=== PATIENT | female | born 1995 | race Two or more races ===

== ENCOUNTER 2017-12-26 19:57 | Emergency (ER) | payer OTHER ==
[~2017-12-26] VITALS: Ht 157.5 cm; Wt 65.3 kg
[2017-12-26] MEDS ORDERED: ACETAMINOPHEN 500 MG TABLET ONE (20:26)
[2017-12-26] MEDS ORDERED: ACETAMINOPHEN 500 MG TABLET PO ONE (20:30)
[2017-12-26 20:57] LABS: BASOPHILS # (AUTO) 0.01 x10^3/uL (0-0.1); BASOPHILS % (AUTO) 0 % (0-1); EOSINOPHILS # (AUTO) 0.05 x10^3/uL (0-0.4); EOSINOPHILS % (AUTO) 0 % (1-7); LYMPHOCYTES # (AUTO) 1.22 x10^3/uL (1-3.4); LYMPHOCYTES % (AUTO) 8 % (22-44); MD NO; MEAN CORPUSCULAR HGB CONC 33.5 g/dL (32.4-35.8); MEAN CORPUSCULAR VOLUME 92.4 fL (80-100); MEAN PLATELET VOLUME 8.8 fL (7.4-10.4); MONOCYTES # (AUTO) 0.68 x10^3/uL (0.2-0.8); MONOCYTES % (AUTO) 5 % (2-9); NEUTROPHILS % (AUTO) 87 % (42-75); PLATELET COUNT 315 x10^3/uL (130-400); RED BLOOD COUNT 4.55 x10^6/uL (3.82-5.3); RED CELL DISTRIBUTION WIDTH 13.7 % (9.6-15.2)
[2017-12-26] MEDS ORDERED: SODIUM CHLORIDE 0.9% 1,000ML IVBOLUS ONE (21:00)
[2017-12-26 21:09] LABS: ANION GAP 7 mmol/L (5-15); CALCIUM 9.5 mg/dL (8.5-10.1); CHLORIDE 106 mmol/L (98-107)
[2017-12-26 21:38] VITALS: BP 107/66
[2017-12-26 21:38] LABS: CREATININE 0.96 mg/dL (0.55-1.02)
== END 2017-12-26 22:29 | disposition home or self-care (01) ==
LOC: ED 22:15
DX: J02.8 Acute pharyngitis due to other specified organisms (principal); B34.9 Viral infection, unspecified; R11.2 Nausea with vomiting, unspecified
CPT/HCPCS: 36415; 80048; 85025; 96360; 99284; J7030

== ENCOUNTER 2017-12-31 00:36 | Emergency (ER) | payer OTHER ==
[~2017-12-31] VITALS: Ht 157.5 cm; Wt 66.0 kg
[2017-12-31] MEDS ORDERED: LORazepam 1MG TABLET ONE (02:54)
[2017-12-31] MEDS ORDERED: LORazepam 1MG TABLET PO ONE (03:00)
[2017-12-31 03:09] LABS: ALANINE AMINOTRANSFERASE 33 U/L (12-78); ALBUMIN 3.4 g/dL (3.4-5.0); ANION GAP 11 mmol/L (5-15); CALCIUM 8.9 mg/dL (8.5-10.1); CHLORIDE 103 mmol/L (98-107)
[2017-12-31 03:11] LABS: SALICYLATE LEVEL < 1.7 mg/dL (2.8-20.0)
[2017-12-31 03:12] LABS: ALKALINE PHOSPHATASE 76 U/L (45-117); BILIRUBIN,TOTAL 0.3 mg/dL (0.2-1.0)
[2017-12-31 03:13] LABS: ACETAMINOPHEN < 2 mcg/mL (10-30)
[2017-12-31 03:15] LABS: MEAN CORPUSCULAR HEMOGLOBIN 30.6 pg (27.0-34.8); MEAN CORPUSCULAR HGB CONC 33.5 g/dL (32.4-35.8); MEAN CORPUSCULAR VOLUME 91.3 fL (80-100); MEAN PLATELET VOLUME 8.1 fL (7.4-10.4); PLATELET COUNT 477 x10^3/uL (130-400); RED BLOOD COUNT 4.14 x10^6/uL (3.82-5.3); RED CELL DISTRIBUTION WIDTH 13.6 % (9.6-15.2)
[2017-12-31 03:35] LABS: AMPHETAMINE SCREEN, URINE Negative (Negative); BARBITURATE SCREEN, URINE Negative (Negative); BENZODIAZEPINE SCREEN, URINE Negative (Negative); CANNABINOID SCREEN, URINE Negative (Negative); COCAINE SCREEN, URINE Negative (Negative); OPIATE SCREEN, URINE Negative (Negative)
[2017-12-31 03:35] LABS: MD YES
[2017-12-31 03:37] LABS: METHADONE SCREEN, URINE Negative (Negative)
[2017-12-31 03:38] LABS: <PLATELET ESTIMATE> INCREASED; <PLT MORPHOLOGY> NORMAL PLT MORPH; <RBC MORPHOLOGY> NORMAL; BAND#(MANUAL) 0.17 x10^3/uL; BANDS%(MANUAL) 1 % (0-7); BASOS#(MANUAL) 0.17 x10^3/uL (0-0.1); BASOS% (MANUAL) 1 % (0-1); LYMPH#(MANUAL) 2.16 x10^3/uL (1-3.4); LYMPHS% (MANUAL) 13 % (22-44); MONOS% (MANUAL) 3 % (2-9); SEG#(MANUAL) 13.61 x10^3/uL (1.8-6.8); SEGS% (MANUAL) 82 % (42-75); TOXIC GRAN 1+
[2017-12-31 03:58] LABS: MICROSCOPIC NOT IND
[2017-12-31 04:01] LABS: CULTURE INDICATED? NO
[2017-12-31 04:55] VITALS: BP 120/78
[2018-01-01] MEDS ORDERED: AZIT500T PO (06:29)
== END 2017-12-31 04:57 | disposition home or self-care (01) ==
LOC: ED 03:16
DX: F41.9 Anxiety disorder, unspecified (principal); F14.10 Cocaine abuse, uncomplicated; R05 Cough; Z72.9 Problem related to lifestyle, unspecified; Z88.8 Allergy status to other drugs, medicaments and biological substances
CPT/HCPCS: 36415; 71045; 80053; 80307; 80329; 81003; 84703; 85025; 99285; G0480

== ENCOUNTER 2018-01-01 03:28 | Inpatient (IN) | payer OTHER ==
[~2018-01-01] VITALS: Ht 160 cm; Wt 63.6 kg
[2018-01-01 04:21] LABS: BASOPHILS # (AUTO) 0.04 x10^3/uL (0-0.1); BASOPHILS % (AUTO) 0 % (0-1); EOSINOPHILS # (AUTO) 0.04 x10^3/uL (0-0.4); EOSINOPHILS % (AUTO) 0 % (1-7); LYMPHOCYTES # (AUTO) 2.42 x10^3/uL (1-3.4); LYMPHOCYTES % (AUTO) 15 % (22-44); MD NO; MEAN CORPUSCULAR HEMOGLOBIN 30.1 pg (27.0-34.8); MEAN CORPUSCULAR HGB CONC 33.7 g/dL (32.4-35.8); MEAN CORPUSCULAR VOLUME 89.3 fL (80-100); MONOCYTES # (AUTO) 1.44 x10^3/uL (0.2-0.8); MONOCYTES % (AUTO) 9 % (2-9); NEUTROPHILS # (AUTO) 11.95 x10^3/uL (1.8-6.8); NEUTROPHILS % (AUTO) 75 % (42-75); PLATELET COUNT 526 x10^3/uL (130-400); RED BLOOD COUNT 3.92 x10^6/uL (3.82-5.3); RED CELL DISTRIBUTION WIDTH 13.5 % (9.6-15.2)
[2018-01-01 04:31] LABS: ALANINE AMINOTRANSFERASE 39 U/L (12-78); ANION GAP 10 mmol/L (5-15); CALCIUM 8.8 mg/dL (8.5-10.1); CHLORIDE 106 mmol/L (98-107); CREATININE 0.69 mg/dL (0.55-1.02)
[2018-01-01 04:32] LABS: SALICYLATE LEVEL < 1.7 mg/dL (2.8-20.0)
[2018-01-01 04:36] LABS: ACETAMINOPHEN < 2 mcg/mL (10-30); ALKALINE PHOSPHATASE 70 U/L (45-117); BILIRUBIN,TOTAL 0.3 mg/dL (0.2-1.0); TOTAL PROTEIN 7.6 g/dL (6.4-8.2)
[2018-01-01 04:59] LABS: AMPHETAMINE SCREEN, URINE Negative (Negative); BARBITURATE SCREEN, URINE Negative (Negative); BENZODIAZEPINE SCREEN, URINE Negative (Negative); CANNABINOID SCREEN, URINE Negative (Negative); COCAINE SCREEN, URINE Negative (Negative); METHADONE SCREEN, URINE Negative (Negative); OPIATE SCREEN, URINE Negative (Negative)
[2018-01-01] MEDS ORDERED: ZIPRASIDONE 20 MG INJ IM ONE ×5 (05:14→23:30)
[2018-01-01] MEDS ORDERED: AZIT500T PO (06:29)
[2018-01-01] MEDS ORDERED: SODIUM CHLORIDE 0.9% 1,000 ML IV ONE (07:18)
[2018-01-01] MEDS ORDERED: AZITHROMYCIN 500 MG in SODIUM CHLORIDE 0.9% 250 ML IVPB ONE (07:30)
[2018-01-01] MEDS ORDERED: CEFTRIAXONE PMX 1GM/50ML 50 ML IVPB ONE (07:30)
[2018-01-01] MEDS ORDERED: SODIUM CHLORIDE 0.9% 1,000ML IVBOLUS ONE ×2 (07:30→08:00)
[2018-01-01] MEDS ORDERED: VANCOMYCIN PER PHARMACY IV ONE (07:30)
[2018-01-01] MEDS ORDERED: CEFTRIAXONE PMX 2GM/50ML 50 ML IV SCH (07:30)
[2018-01-01] MEDS ORDERED: SODIUM CHLORIDE FLUSH 10ML SYR IVF ONE (07:30)
[2018-01-01] MEDS ORDERED: VANCOMYCIN 1,200 MG in SODIUM CHLORIDE 0.9% 250 ML IV ONE (08:00)
[2018-01-01] MEDS ORDERED: MIDAZOLAM 1 MG/ML, 2ML ONE (08:36)
[2018-01-01] MEDS ORDERED: CEFTRIAXONE PMX 2GM/50ML 50 ML ONE (08:36)
[2018-01-01] MEDS ORDERED: MIDAZOLAM 1 MG/ML, 2ML IVPush ONE (09:00)
[2018-01-01] MEDS ORDERED: PROPOFOL 10 MG/ML, 20ML ONE (09:04)
[2018-01-01] MEDS ORDERED: PROPOFOL 10 MG/ML, 20ML IVPush ONE (09:30)
[2018-01-01 10:25] LABS: GLUCOSE, CSF 61 mg/dL (40-80); TOTAL PROTEIN,CSF 18 mg/dL (15-45)
[2018-01-01] MEDS ORDERED: LABETALOL 5MG/ML, 20ML IVPush PRN (11:00)
[2018-01-01] MEDS ORDERED: ONDANSETRON 2MG/ML, 2ML IVPush PRN (11:00)
[2018-01-01 11:13] LABS: FREE T4 (FREE THYROXINE) 1.59 ng/dL (0.76-1.46)
[2018-01-01] MEDS ORDERED: ONDANSETRON ODT 4 MG PO PRN (11:30)
[2018-01-01] MEDS: AMPICILLIN/SULBACTAM 3 GM in SODIUM CHLORIDE 0.9% 100 ML IV SCH ×2 (13:50→19:57)
[2018-01-01] MEDS: D5%-0.45NACL+KCL 20MEQ 1,000 ML IV SCH ×2 (14:43→20:00)
[2018-01-01] MEDS: ENOXAPARIN 40 MG/0.4 ML SQ SCH (14:43)
[2018-01-01] MEDS ORDERED: OMNIPAQUE 350 MG/ML, 100ML BOTTLE ONE (18:00)
[2018-01-01 20:24] VITALS: BP 127/86
[2018-01-01 20:42] LABS: MICROSCOPIC NOT IND
[2018-01-01 20:48] LABS: CULTURE INDICATED? NO
[2018-01-01 20:55] LABS: AMPHETAMINE SCREEN, URINE Negative (Negative); BARBITURATE SCREEN, URINE Negative (Negative); BENZODIAZEPINE SCREEN, URINE Positive (Negative); CANNABINOID SCREEN, URINE Negative (Negative); COCAINE SCREEN, URINE Negative (Negative); METHADONE SCREEN, URINE Negative (Negative); OPIATE SCREEN, URINE Negative (Negative)
[2018-01-02] MEDS: AMPICILLIN/SULBACTAM 3 GM in SODIUM CHLORIDE 0.9% 100 ML IV SCH ×4 (01:19→19:57)
[2018-01-02 03:49] VITALS: BP 125/77
[2018-01-02] MEDS: D5%-0.45NACL+KCL 20MEQ 1,000 ML IV SCH (05:23)
[2018-01-02] MEDS ORDERED: LORazepam 2 MG/ML, 1ML IVPush PRN (05:30)
[2018-01-02 05:44] LABS: BASOPHILS # (AUTO) 0.03 x10^3/uL (0-0.1); BASOPHILS % (AUTO) 0 % (0-1); EOSINOPHILS # (AUTO) 0.08 x10^3/uL (0-0.4); EOSINOPHILS % (AUTO) 1 % (1-7); LYMPHOCYTES % (AUTO) 26 % (22-44); MD NO; MEAN CORPUSCULAR HEMOGLOBIN 30.2 pg (27.0-34.8); MEAN CORPUSCULAR HGB CONC 33.1 g/dL (32.4-35.8); MEAN CORPUSCULAR VOLUME 91.1 fL (80-100); MEAN PLATELET VOLUME 7.9 fL (7.4-10.4); MONOCYTES # (AUTO) 0.81 x10^3/uL (0.2-0.8); MONOCYTES % (AUTO) 7 % (2-9); NEUTROPHILS # (AUTO) 8.11 x10^3/uL (1.8-6.8); NEUTROPHILS % (AUTO) 67 % (42-75); PLATELET COUNT 573 x10^3/uL (130-400); RED BLOOD COUNT 3.83 x10^6/uL (3.82-5.3); RED CELL DISTRIBUTION WIDTH 13.5 % (9.6-15.2)
[2018-01-02 05:55] LABS: ANION GAP 10 mmol/L (5-15); CALCIUM 8.6 mg/dL (8.5-10.1); CHLORIDE 110 mmol/L (98-107)
[2018-01-02 06:00] LABS: ALANINE AMINOTRANSFERASE 36 U/L (12-78); ALKALINE PHOSPHATASE 61 U/L (45-117); BILIRUBIN,TOTAL 0.3 mg/dL (0.2-1.0); CREATININE 0.67 mg/dL (0.55-1.02); TOTAL PROTEIN 7.4 g/dL (6.4-8.2)
[2018-01-02] MEDS ORDERED: POTASSIUM CHLORIDE 20 MEQ TAB.ER.PRT PO ONE ×3 (07:00→11:00)
[2018-01-02 08:21] VITALS: BP 110/76
[2018-01-02] MEDS: LACTATED RINGERS 1,000 ML IV SCH ×2 (08:46→18:09)
[2018-01-02] MEDS: HALOPERIDOL 5 MG/ML IM PRN (08:46)
[2018-01-02] MEDS: OLANZAPINE 5 MG TABLET PO SCH ×2 (08:46→21:18)
[2018-01-02] MEDS: DOXYCYCLINE 100MG TABLET PO SCH ×2 (08:46→21:18)
[2018-01-02] MEDS ORDERED: OLANZAPINE 5 MG TABLET PO SCH (09:00)
[2018-01-02] MEDS: HALOPERIDOL 2 MG/ML ORAL SOL PO SCH ×3 (09:00→21:19)
[2018-01-02] MEDS: SENNA/DOCUSATE TABLET PO SCH (09:00)
[2018-01-02] MEDS: ENOXAPARIN 40 MG/0.4 ML SQ SCH (11:00)
[2018-01-02 13:01] VITALS: BP 95/60
[2018-01-02 21:20] VITALS: BP 105/83
[2018-01-03] MEDS: AMPICILLIN/SULBACTAM 3 GM in SODIUM CHLORIDE 0.9% 100 ML IV SCH ×4 (01:48→20:32)
[2018-01-03] MEDS: LACTATED RINGERS 1,000 ML IV SCH (01:50)
[2018-01-03 04:02] VITALS: BP 120/82
[2018-01-03 05:29] LABS: BASOPHILS % (AUTO) 1 % (0-1); EOSINOPHILS % (AUTO) 1 % (1-7); LYMPHOCYTES # (AUTO) 3.57 x10^3/uL (1-3.4); LYMPHOCYTES % (AUTO) 45 % (22-44); MD NO; MEAN CORPUSCULAR HEMOGLOBIN 30.5 pg (27.0-34.8); MEAN CORPUSCULAR HGB CONC 33.9 g/dL (32.4-35.8); MEAN CORPUSCULAR VOLUME 89.8 fL (80-100); MEAN PLATELET VOLUME 7.5 fL (7.4-10.4); MONOCYTES # (AUTO) 0.55 x10^3/uL (0.2-0.8); MONOCYTES % (AUTO) 7 % (2-9); NEUTROPHILS # (AUTO) 3.57 x10^3/uL (1.8-6.8); NEUTROPHILS % (AUTO) 45 % (42-75); PLATELET COUNT 559 x10^3/uL (130-400); RED BLOOD COUNT 3.74 x10^6/uL (3.82-5.3)
[2018-01-03 05:34] LABS: ALBUMIN 2.7 g/dL (3.4-5.0); ANION GAP 9 mmol/L (5-15); CHLORIDE 109 mmol/L (98-107)
[2018-01-03 05:37] LABS: ALANINE AMINOTRANSFERASE 29 U/L (12-78); ALKALINE PHOSPHATASE 52 U/L (45-117); BILIRUBIN,TOTAL 0.5 mg/dL (0.2-1.0); CREATININE 0.71 mg/dL (0.55-1.02); TOTAL PROTEIN 6.7 g/dL (6.4-8.2)
[2018-01-03 07:06] VITALS: BP 137/90
[2018-01-03] MEDS: HALOPERIDOL 5 MG/ML IM PRN ×2 (07:06→14:53)
[2018-01-03] MEDS: HALOPERIDOL 2 MG/ML ORAL SOL PO SCH ×3 (07:56→13:42)
[2018-01-03] MEDS: DOXYCYCLINE 100MG TABLET PO SCH ×2 (07:56→20:32)
[2018-01-03] MEDS: OLANZAPINE 5 MG TABLET PO SCH ×2 (07:57→20:32)
[2018-01-03] MEDS ORDERED: GUAIFENESIN 200 MG TABLET PO PRN (08:30)
[2018-01-03] MEDS: SENNA/DOCUSATE TABLET PO SCH (09:00)
[2018-01-03] MEDS: ENOXAPARIN 40 MG/0.4 ML SQ SCH (13:42)
[2018-01-03 15:00] VITALS: BP 138/74
[2018-01-03] MEDS ORDERED: LORazepam 2 MG/ML, 1ML IVPush PRN (16:00)
[2018-01-03] MEDS ORDERED: BENZTROPINE 1 MG/ML, 2 ML IVPush ONE (16:00)
[2018-01-03] MEDS ORDERED: BENZTROPINE 1 MG/ML, 2 ML IM ONE (16:30)
[2018-01-03] MEDS ORDERED: DIPHENHYDRAMINE 50 MG CAPSULE PO PRN (17:30)
[2018-01-03] MEDS ORDERED: OLANZAPINE 10 MG INJ IM PRN (17:30)
[2018-01-03] MEDS: BENZTROPINE 1 MG TABLET PO SCH (20:31)
[2018-01-03 20:59] VITALS: BP 120/84
[2018-01-04 00:46] VITALS: BP 113/81
[2018-01-04] MEDS: AMPICILLIN/SULBACTAM 3 GM in SODIUM CHLORIDE 0.9% 100 ML IV SCH ×4 (02:50→21:04)
[2018-01-04 05:41] LABS: ANION GAP 8 mmol/L (5-15); CALCIUM 9.2 mg/dL (8.5-10.1); CHLORIDE 104 mmol/L (98-107); CREATININE 0.79 mg/dL (0.55-1.02)
[2018-01-04 05:42] LABS: ALANINE AMINOTRANSFERASE 38 U/L (12-78); ALBUMIN 3.4 g/dL (3.4-5.0)
[2018-01-04 05:43] LABS: ALKALINE PHOSPHATASE 63 U/L (45-117); BASOPHILS # (AUTO) 0.02 x10^3/uL (0-0.1); BASOPHILS % (AUTO) 0 % (0-1); BILIRUBIN,TOTAL 0.3 mg/dL (0.2-1.0); EOSINOPHILS # (AUTO) 0.09 x10^3/uL (0-0.4); EOSINOPHILS % (AUTO) 1 % (1-7); LYMPHOCYTES # (AUTO) 3.64 x10^3/uL (1-3.4); LYMPHOCYTES % (AUTO) 34 % (22-44); MD NO; MEAN CORPUSCULAR HEMOGLOBIN 30.4 pg (27.0-34.8); MEAN CORPUSCULAR HGB CONC 33.1 g/dL (32.4-35.8); MEAN CORPUSCULAR VOLUME 91.8 fL (80-100); MEAN PLATELET VOLUME 7.7 fL (7.4-10.4); MONOCYTES # (AUTO) 0.73 x10^3/uL (0.2-0.8); MONOCYTES % (AUTO) 7 % (2-9); NEUTROPHILS # (AUTO) 6.24 x10^3/uL (1.8-6.8); NEUTROPHILS % (AUTO) 58 % (42-75); PLATELET COUNT 750 x10^3/uL (130-400); RED BLOOD COUNT 4.36 x10^6/uL (3.82-5.3); RED CELL DISTRIBUTION WIDTH 13.6 % (9.6-15.2)
[2018-01-04 07:04] VITALS: BP 123/85
[2018-01-04] MEDS ORDERED: DIPHENHYDRAMINE 50 MG/ML, 1ML ONE (07:39)
[2018-01-04] MEDS ORDERED: DIPHENHYDRAMINE 50 MG/ML, 1ML IVPush ONE (08:00)
[2018-01-04] MEDS: BENZTROPINE 1 MG TABLET PO SCH ×2 (08:38→21:05)
[2018-01-04] MEDS: DOXYCYCLINE 100MG TABLET PO SCH ×2 (08:38→21:05)
[2018-01-04] MEDS: OLANZAPINE 5 MG TABLET PO SCH ×2 (08:38→21:05)
[2018-01-04] MEDS: SENNA/DOCUSATE TABLET PO SCH (08:39)
[2018-01-04] MEDS ORDERED: LORazepam 2 MG/ML, 1ML ONE (08:43)
[2018-01-04] MEDS ORDERED: LORazepam 2 MG/ML, 1ML IVPush ONE (09:00)
[2018-01-04 12:47] VITALS: BP 118/78
[2018-01-04] MEDS: ENOXAPARIN 40 MG/0.4 ML SQ SCH (13:32)
[2018-01-04] MEDS ORDERED: OLANZAPINE 10 MG INJ IM PRN ×3 (14:00→17:30)
[2018-01-04] MEDS ORDERED: LORazepam 1MG TABLET PO ONE (14:00)
[2018-01-04] MEDS: ONDANSETRON ODT 4 MG PO PRN (14:56)
[2018-01-04 18:58] VITALS: BP 118/79
[2018-01-04] MEDS: LORazepam 1MG TABLET PO PRN (19:29)
[2018-01-05 01:30] VITALS: BP 117/78
[2018-01-05] MEDS: OLANZAPINE 10 MG INJ IM PRN ×2 (01:47→16:50)
[2018-01-05] MEDS: AMPICILLIN/SULBACTAM 3 GM in SODIUM CHLORIDE 0.9% 100 ML IV SCH ×4 (03:02→21:07)
[2018-01-05 05:34] LABS: BASOPHILS # (AUTO) 0.04 x10^3/uL (0-0.1); BASOPHILS % (AUTO) 1 % (0-1); EOSINOPHILS # (AUTO) 0.12 x10^3/uL (0-0.4); EOSINOPHILS % (AUTO) 2 % (1-7); LYMPHOCYTES % (AUTO) 33 % (22-44); MD NO; MEAN CORPUSCULAR HEMOGLOBIN 30.5 pg (27.0-34.8); MEAN CORPUSCULAR HGB CONC 33.4 g/dL (32.4-35.8); MEAN CORPUSCULAR VOLUME 91.3 fL (80-100); MEAN PLATELET VOLUME 7.3 fL (7.4-10.4); MONOCYTES # (AUTO) 0.66 x10^3/uL (0.2-0.8); MONOCYTES % (AUTO) 9 % (2-9); NEUTROPHILS # (AUTO) 4.36 x10^3/uL (1.8-6.8); NEUTROPHILS % (AUTO) 56 % (42-75); PLATELET COUNT 695 x10^3/uL (130-400); RED BLOOD COUNT 4.42 x10^6/uL (3.82-5.3); RED CELL DISTRIBUTION WIDTH 13.7 % (9.6-15.2)
[2018-01-05 05:44] LABS: ALBUMIN 3.2 g/dL (3.4-5.0); ANION GAP 8 mmol/L (5-15); CALCIUM 9.1 mg/dL (8.5-10.1); CHLORIDE 106 mmol/L (98-107); CREATININE 0.94 mg/dL (0.55-1.02)
[2018-01-05 06:40] VITALS: BP 115/79
[2018-01-05] MEDS ORDERED: FENTANYL PF 100 MCG/2ML ONE (07:25)
[2018-01-05] MEDS ORDERED: FLUMAZENIL 0.1 MG/1 ML, 5ML ONE (07:25)
[2018-01-05] MEDS ORDERED: MIDAZOLAM 1 MG/ML, 5ML ONE (07:25)
[2018-01-05] MEDS ORDERED: NALOXONE 1 MG/ML, 2ML ONE (07:25)
[2018-01-05] MEDS ORDERED: GADOBUTROL 7.5 MMOL/7.5 ML PFS ONE (08:05)
[2018-01-05] MEDS: BENZTROPINE 1 MG TABLET PO SCH ×2 (08:49→21:07)
[2018-01-05] MEDS: DOXYCYCLINE 100MG TABLET PO SCH ×2 (08:49→21:07)
[2018-01-05] MEDS: OLANZAPINE 5 MG TABLET PO SCH ×2 (08:50→17:43)
[2018-01-05] MEDS: SENNA/DOCUSATE TABLET PO SCH (08:50)
[2018-01-05] MEDS: LORazepam 1MG TABLET PO PRN ×3 (10:31→22:27)
[2018-01-05 13:50] VITALS: BP 114/80
[2018-01-05] MEDS: ENOXAPARIN 40 MG/0.4 ML SQ SCH (14:57)
[2018-01-05 21:16] VITALS: BP 111/76
[2018-01-06 01:51] VITALS: BP 113/82
[2018-01-06] MEDS: OLANZAPINE 10 MG INJ IM PRN ×2 (01:53→18:23)
[2018-01-06] MEDS: AMPICILLIN/SULBACTAM 3 GM in SODIUM CHLORIDE 0.9% 100 ML IV SCH (03:25)
[2018-01-06] MEDS: LORazepam 1MG TABLET PO PRN ×3 (05:55→23:54)
[2018-01-06 08:53] VITALS: BP 118/82
[2018-01-06] MEDS: BENZTROPINE 1 MG TABLET PO SCH ×2 (08:53→20:07)
[2018-01-06] MEDS: SENNA/DOCUSATE TABLET PO SCH (08:53)
[2018-01-06] MEDS: OLANZAPINE 5 MG TABLET PO SCH ×2 (08:53→20:07)
[2018-01-06] MEDS: CEFTRIAXONE PMX 1GM/50ML 50 ML IV SCH (08:53)
[2018-01-06] MEDS: DOXYCYCLINE 100MG TABLET PO SCH ×2 (08:53→20:07)
[2018-01-06 10:21] VITALS: BP 118/82
[2018-01-06] MEDS: ENOXAPARIN 40 MG/0.4 ML SQ SCH (11:23)
[2018-01-06 13:03] VITALS: BP 122/78
[2018-01-06 18:29] VITALS: BP 114/79
[2018-01-06] MEDS: ONDANSETRON ODT 4 MG PO PRN (21:37)
[2018-01-07 01:19] VITALS: BP 124/80
[2018-01-07 07:27] VITALS: BP 116/81
[2018-01-07] MEDS: OLANZAPINE 5 MG TABLET PO SCH ×2 (09:12→20:04)
[2018-01-07] MEDS: DOXYCYCLINE 100MG TABLET PO SCH ×2 (09:12→20:03)
[2018-01-07] MEDS: SENNA/DOCUSATE TABLET PO SCH (09:12)
[2018-01-07] MEDS: CEFTRIAXONE PMX 1GM/50ML 50 ML IV SCH (09:12)
[2018-01-07] MEDS: BENZTROPINE 1 MG TABLET PO SCH ×2 (09:12→20:03)
[2018-01-07] MEDS: ENOXAPARIN 40 MG/0.4 ML SQ SCH (11:28)
[2018-01-07] MEDS: LORazepam 1MG TABLET PO PRN (11:28)
[2018-01-07] MEDS: OLANZAPINE 10 MG INJ IM PRN (12:51)
[2018-01-07] MEDS ORDERED: LORazepam 1MG TABLET PO PRN (14:00)
[2018-01-07 14:20] VITALS: BP 116/77
[2018-01-07 18:41] VITALS: BP 101/70
[2018-01-07] MEDS ORDERED: FLUCONAZOLE 100 MG TABLET ONE (19:56)
[2018-01-07] MEDS: FLUCONAZOLE 200 MG TABLET PO SCH (20:05)
[2018-01-08 01:28] VITALS: BP 104/69
[2018-01-08 07:12] VITALS: BP 125/85
[2018-01-08] MEDS: DOXYCYCLINE 100MG TABLET PO SCH (07:57)
[2018-01-08] MEDS: OLANZAPINE 5 MG TABLET PO SCH ×2 (07:57→20:17)
[2018-01-08] MEDS: BENZTROPINE 1 MG TABLET PO SCH ×2 (07:57→20:17)
[2018-01-08] MEDS: SENNA/DOCUSATE TABLET PO SCH (07:57)
[2018-01-08] MEDS: FLUCONAZOLE 200 MG TABLET PO SCH (07:57)
[2018-01-08] MEDS: CEFTRIAXONE PMX 1GM/50ML 50 ML IV SCH (10:57)
[2018-01-08] MEDS: ENOXAPARIN 40 MG/0.4 ML SQ SCH (10:58)
[2018-01-08 13:46] VITALS: BP 107/76
[2018-01-08] MEDS ORDERED: SODIUM CHLORIDE 0.9% 1,000ML IVBOLUS ONE (18:00)
[2018-01-08 19:45] VITALS: BP 108/77
[2018-01-08] MEDS: DIVALPROEX 500 MG TAB.ER.24H PO SCH (20:17)
[2018-01-09 02:49] VITALS: BP 93/64
[2018-01-09 05:47] LABS: ALBUMIN 3.2 g/dL (3.4-5.0); ANION GAP 6 mmol/L (5-15); CHLORIDE 109 mmol/L (98-107)
[2018-01-09 05:51] LABS: ALANINE AMINOTRANSFERASE 68 U/L (12-78); ALKALINE PHOSPHATASE 53 U/L (45-117); BASOPHILS # (AUTO) 0.04 x10^3/uL (0-0.1); BASOPHILS % (AUTO) 1 % (0-1); BILIRUBIN,TOTAL 0.5 mg/dL (0.2-1.0); CREATININE 0.86 mg/dL (0.55-1.02); EOSINOPHILS # (AUTO) 0.14 x10^3/uL (0-0.4); EOSINOPHILS % (AUTO) 2 % (1-7); LYMPHOCYTES # (AUTO) 3.17 x10^3/uL (1-3.4); LYMPHOCYTES % (AUTO) 46 % (22-44); MD NO; MEAN CORPUSCULAR HEMOGLOBIN 30.3 pg (27.0-34.8); MEAN CORPUSCULAR HGB CONC 33.5 g/dL (32.4-35.8); MEAN CORPUSCULAR VOLUME 90.3 fL (80-100); MEAN PLATELET VOLUME 7.9 fL (7.4-10.4); MONOCYTES # (AUTO) 0.72 x10^3/uL (0.2-0.8); MONOCYTES % (AUTO) 11 % (2-9); NEUTROPHILS # (AUTO) 2.76 x10^3/uL (1.8-6.8); NEUTROPHILS % (AUTO) 41 % (42-75); PLATELET COUNT 479 x10^3/uL (130-400); RED BLOOD COUNT 4.24 x10^6/uL (3.82-5.3); RED CELL DISTRIBUTION WIDTH 13.9 % (9.6-15.2); TOTAL PROTEIN 6.6 g/dL (6.4-8.2)
[2018-01-09] MEDS: BENZTROPINE 1 MG TABLET PO SCH ×2 (08:47→19:50)
[2018-01-09] MEDS: SENNA/DOCUSATE TABLET PO SCH (08:47)
[2018-01-09] MEDS: ENOXAPARIN 40 MG/0.4 ML SQ SCH (08:47)
[2018-01-09] MEDS: OLANZAPINE 5 MG TABLET PO SCH ×2 (08:47→19:51)
[2018-01-09] MEDS: FLUCONAZOLE 200 MG TABLET PO SCH (08:47)
[2018-01-09 08:52] VITALS: BP 99/62
[2018-01-09 15:55] VITALS: BP 117/78
[2018-01-09] MEDS: DIVALPROEX 500 MG TAB.ER.24H PO SCH (19:50)
[2018-01-09 20:01] VITALS: BP 107/74
[2018-01-10 04:28] VITALS: BP 117/76
[2018-01-10 06:40] VITALS: BP 104/68
[2018-01-10] MEDS: ENOXAPARIN 40 MG/0.4 ML SQ SCH (09:00)
[2018-01-10] MEDS: OLANZAPINE 5 MG TABLET PO SCH ×2 (09:02→20:33)
[2018-01-10] MEDS: BENZTROPINE 1 MG TABLET PO SCH ×2 (09:02→20:33)
[2018-01-10] MEDS: SENNA/DOCUSATE TABLET PO SCH (09:02)
[2018-01-10 12:12] VITALS: BP 103/72
[2018-01-10] MEDS: DIVALPROEX 500 MG TAB.ER.24H PO SCH (20:32)
[2018-01-10 20:36] VITALS: BP 105/73
[2018-01-11 02:58] VITALS: BP 97/64
[2018-01-11] MEDS: ENOXAPARIN 40 MG/0.4 ML SQ SCH (08:47)
[2018-01-11] MEDS: SENNA/DOCUSATE TABLET PO SCH (08:47)
[2018-01-11 08:48] VITALS: BP 106/65
[2018-01-11] MEDS: BENZTROPINE 1 MG TABLET PO SCH ×2 (08:48→21:39)
[2018-01-11] MEDS: OLANZAPINE 5 MG TABLET PO SCH ×2 (08:49→21:39)
[2018-01-11 14:14] VITALS: BP 105/70
[2018-01-11 17:37] VITALS: BP 114/63
[2018-01-11 20:17] VITALS: BP 105/72
[2018-01-11] MEDS: DIVALPROEX 500 MG TAB.ER.24H PO SCH (21:40)
[2018-01-12] MEDS: SENNA/DOCUSATE TABLET PO SCH (10:56)
[2018-01-12] MEDS: OLANZAPINE 5 MG TABLET PO SCH ×2 (10:56→20:59)
[2018-01-12] MEDS: ENOXAPARIN 40 MG/0.4 ML SQ SCH (10:57)
[2018-01-12] MEDS: BENZTROPINE 1 MG TABLET PO SCH ×2 (10:57→20:59)
[2018-01-12 19:56] VITALS: BP 92/66
[2018-01-12] MEDS: DIVALPROEX 500 MG TAB.ER.24H PO SCH (20:59)
[2018-01-13 08:22] VITALS: BP 87/58
[2018-01-13 08:46] VITALS: BP 87/58
[2018-01-13] MEDS: ENOXAPARIN 40 MG/0.4 ML SQ SCH (08:49)
[2018-01-13] MEDS: BENZTROPINE 1 MG TABLET PO SCH (08:50)
[2018-01-13] MEDS: SENNA/DOCUSATE TABLET PO SCH (08:50)
[2018-01-13] MEDS: OLANZAPINE 5 MG TABLET PO SCH (08:51)
== END 2018-01-13 13:07 | disposition home or self-care (01) | DRG 871 ==
LOC: ED 03:52 → EDIP 08:51 → 4EST 10:46 → 3E 01-11 17:06
PROVIDERS: ADMIT Internal Medicine; ATTEND Internal Medicine
PROC: 009U3ZX Drainage of Spinal Canal, Percutaneous Approach, Diagnostic (ICD-10-PCS; principal; 2018-01-01)
DX: A41.9 Sepsis, unspecified organism (principal); G00.9 Bacterial meningitis, unspecified; G93.41 Metabolic encephalopathy; J18.9 Pneumonia, unspecified organism; F23 Brief psychotic disorder; F31.9 Bipolar disorder, unspecified; F41.9 Anxiety disorder, unspecified; J01.90 Acute sinusitis, unspecified; J32.0 Chronic maxillary sinusitis; J32.2 Chronic ethmoidal sinusitis; R65.20 Severe sepsis without septic shock; F14.10 Cocaine abuse, uncomplicated; T43.4X5A Adverse effect of butyrophenone and thiothixene neuroleptics, initial encounter; R79.89 Other specified abnormal findings of blood chemistry; F12.10 Cannabis abuse, uncomplicated; Z81.8 Family history of other mental and behavioral disorders; Y92.89 Other specified places as the place of occurrence of the external cause; Z91.19 Patient's noncompliance with other medical treatment and regimen
CPT/HCPCS: 36415; 70450; 70553; 71045; 71260; 80048; 80053; 80164; 80307; 80329; 81003; 82040; 82945; 83605; 83735; 84100; 84157; 84439; 84443; 84703; 85025; 85651; 86140; 86255; 87040; 87070; 87205; 87252; 87529; 89051; 93005; 95819; 96365; 96372; 99156; 99157; A9585; J0295; J0515; J0696; J1650; J2250; J3010; J3370; J3486; Q0162; Q9967; G0480; J1200; J1630; J2060; J2310; J3480; J7030; J7050; J7120

== ENCOUNTER 2018-02-01 14:43 | Observation (INO) | payer OTHER ==
[~2018-02-01] VITALS: Ht 157.5 cm; Wt 65.7 kg
[~2018-02-01 14:43] MED LIST: AZIT500T PO
[2018-02-01 15:38] LABS: ALBUMIN 3.6 g/dL (3.4-5.0); ANION GAP 9 mmol/L (5-15); CALCIUM 8.9 mg/dL (8.5-10.1); CHLORIDE 107 mmol/L (98-107); CREATININE 0.84 mg/dL (0.55-1.02)
[2018-02-01 15:40] LABS: BASOPHILS # (AUTO) 0.04 x10^3/uL (0-0.1); BASOPHILS % (AUTO) 1 % (0-1); EOSINOPHILS # (AUTO) 0.06 x10^3/uL (0-0.4); EOSINOPHILS % (AUTO) 1 % (1-7); LYMPHOCYTES # (AUTO) 2.71 x10^3/uL (1-3.4); LYMPHOCYTES % (AUTO) 36 % (22-44); MD NO; MEAN CORPUSCULAR HEMOGLOBIN 29.2 pg (27.0-34.8); MEAN CORPUSCULAR HGB CONC 32.4 g/dL (32.4-35.8); MEAN CORPUSCULAR VOLUME 90.2 fL (80-100); MEAN PLATELET VOLUME 8.3 fL (7.4-10.4); MONOCYTES # (AUTO) 0.56 x10^3/uL (0.2-0.8); MONOCYTES % (AUTO) 7 % (2-9); NEUTROPHILS # (AUTO) 4.24 x10^3/uL (1.8-6.8); NEUTROPHILS % (AUTO) 56 % (42-75); PLATELET COUNT 248 x10^3/uL (130-400); RED BLOOD COUNT 4.21 x10^6/uL (3.82-5.3); RED CELL DISTRIBUTION WIDTH 14.2 % (9.6-15.2)
[2018-02-01 15:42] LABS: SALICYLATE LEVEL < 1.7 mg/dL (2.8-20.0)
[2018-02-01 15:43] LABS: ACETAMINOPHEN < 2 mcg/mL (10-30)
[2018-02-01 15:50] LABS: HCG UR SG 1.011 (1.003-1.030)
[2018-02-01] MEDS ORDERED: DIVA500T17 PO (15:53)
[2018-02-01] MEDS ORDERED: BENZ1TAB61 PO (15:54)
[2018-02-01] MEDS ORDERED: OLAN10TA9 PO (15:54)
[2018-02-01 16:03] LABS: AMPHETAMINE SCREEN, URINE Negative (Negative); BARBITURATE SCREEN, URINE Negative (Negative); BENZODIAZEPINE SCREEN, URINE Negative (Negative); CANNABINOID SCREEN, URINE Negative (Negative); COCAINE SCREEN, URINE Negative (Negative); METHADONE SCREEN, URINE Negative (Negative); OPIATE SCREEN, URINE Negative (Negative)
[2018-02-01] MEDS ORDERED: ZIPRASIDONE 20 MG INJ IM ONE ×4 (16:11→20:00)
[2018-02-01] MEDS ORDERED: ZIPRASIDONE 20MG CAPSULE PO ONE (16:30)
[2018-02-02] MEDS ORDERED: DOCUSATE 100 MG CAPSULE PO PRN
[2018-02-02] MEDS ORDERED: ZIPRASIDONE 20 MG INJ IM PRN
[2018-02-02] MEDS ORDERED: ACETAMINOPHEN 325 MG TABLET PO PRN
[2018-02-02] MEDS ORDERED: POLYETHYLENE GLYCOL 17 GM PACKET PO PRN
[2018-02-02] MEDS ORDERED: ONDANSETRON ODT 4 MG PO PRN
[2018-02-02] MEDS ORDERED: ZIPRASIDONE 20MG CAPSULE PO PRN
[2018-02-02] MEDS ORDERED: BISACODYL 10 MG SUPP PR PRN
[2018-02-02 00:41] VITALS: BP 107/75
[2018-02-02] MEDS ORDERED: DIVALPROEX 500 MG TAB.ER.24H PO ONE (03:30)
[2018-02-02] MEDS: OLANZAPINE 10 MG TABLET PO SCH ×2 (09:33→22:45)
[2018-02-02] MEDS: BENZTROPINE 1 MG TABLET PO SCH ×2 (09:33→22:44)
[2018-02-02] MEDS ORDERED: LORazepam 1MG TABLET PO PRN (11:00)
[2018-02-02] MEDS ORDERED: LORazepam 2 MG/ML, 1ML IM PRN (14:30)
[2018-02-02] MEDS ORDERED: OLANZAPINE 5 MG TABLET PO PRN (14:30)
[2018-02-02] MEDS ORDERED: DIVALPROEX 500 MG TAB.ER.24H PO SCH (21:00)
== END 2018-02-02 22:52 ==
LOC: ED 17:04 → EDIP 21:48 → 3E 02-02 00:46
PROVIDERS: ADMIT Hospitalist; ATTEND Hospitalist
DX: F23 Brief psychotic disorder (principal); R45.851 Suicidal ideations; R45.850 Homicidal ideations; F31.9 Bipolar disorder, unspecified; F20.9 Schizophrenia, unspecified; F17.200 Nicotine dependence, unspecified, uncomplicated; F12.90 Cannabis use, unspecified, uncomplicated; Z91.14 Patient's other noncompliance with medication regimen
CPT/HCPCS: 36415; 80048; 80307; 80329; 81025; 82040; 85025; 96372; 99285; G0378; J2060; J3486; G0480

== ENCOUNTER 2021-05-22 15:58 | Emergency (ER) | payer OTHER ==
[~2021-05-22] VITALS: Ht 157.5 cm; Wt 73.0 kg
[2021-05-22 17:17] VITALS: BP 92/64
== END 2021-05-22 17:27 | disposition home or self-care (01) ==
LOC: ED 16:10
DX: U07.1 COVID-19 (principal); R05 Cough; R06.02 Shortness of breath; M79.89 Other specified soft tissue disorders; F17.200 Nicotine dependence, unspecified, uncomplicated
CPT/HCPCS: 93005; 96372; 99283; J1100; Q0162